=== PATIENT | female | born 2005 ===

== ENCOUNTER 2023-05-27 09:20 | Emergency (ER) | payer MEDICAID, SELFPAY ==
[2023-05-27 09:22] VITALS: BP 117/81; PULSE 78; RESP 16; TEMP 36.3; O2SAT 98; BMI 18.6
[2023-05-27] MEDS: Ondansetron ODT 4 MG TAB.RAPDIS TRANSLINGU (09:31)
--- NOTE | 2023-05-27 09:47 | ED.NAVMDI ---
HPI - Nausea/Vomiting/Diarrhea General Chief complaint: Nausea/Vomiting/Diarrhea Stated complaint: Dehydration, nausea Time Seen by Provider: 05/27/23 09:45 Source: patient Mode of arrival: ambulatory Limitations: no limitations History of Present Illness HPI Narrative: 17 year old female with no significant pmhx presents to the ED today for evaluation of nausea, vomiting, abdominal pain since last night after drinking alcohol. Admits to having 3 cocktails with friends starting around 2000 last night. Around 2300, began vomiting. Reports multiple episodes of vomiting since this time - cannot quantify amount. Friends at bedside decided to bring her to ED for evaluation and are assisting with history. Patient admits to smoking marijuana regularly including last night prior to drinking. Denies other illicit sibstance use. Adds that she began drinking on an empty stomach and has not had much to eat. Denies daily etoh consumption. Denies hx of etoh abuse or withdrawal. No known sick contacts. Denies sore throat, cough, hematemesis, diarrhea, constipation, rashes, flank pain, dysuria, hematuria. Related Data Previous Rx's Medication Instructions Recorded ondansetron 4 mg disintegrating 4 mg PO DAILY PRN nausea and 05/27/23 tablet vomiting 5 days #7 tabs Allergies Allergy/AdvReac Type Severity Reaction Status Date / Time No Known Allergies Allergy Verified 05/27/23 09:28 Review of Systems Review of Systems: Constitutional: No fever, chills, fatigue, night sweats, weight changes ENT/Mouth: No ear pain, hearing loss, nasal congestion, sinus pain, rhinorrhea, sore throat Eyes: No eye pain, swelling, redness, vision changes, discharge Cardio: No chest pain, palpitations, SAMANIEGO, orthopnea, peripheral edema Pulm: No SOB, cough, sputum, wheezing, dyspnea, hemoptysis GI: +nausea, +vomiting, +abdominal pain, no hematemesis, diarrhea, constipation, hematochezia, melena : No irregular bleeding, dysuria, frequency, urgency, hesitancy, hematuria, flank pain, urinary flow changes, urinary incontinence or retention MSK: No back pain, neck pain, joint pain, myalgias Skin: No lesions, rashes Neuro: No weakness, numbness, paresthesias, LOC, dizziness, headache All other systems reviewed and are negative. [facility] Past Medical History Attestation statement: The following information was validated with the patient. Source: old records reviewed and nursing notes reviewed Social History Social History Alcohol intake: current Alcohol intake frequency: a few times a week Smoked in Last 30 Days: No Use of substances other than those prescribed or required for medical reasons: No Advance Directives: No Advance Directives Information Provided: No Patient : No Physical Exam Vital Signs: Vital Signs: Last Vital Signs Temp 97.4 F 05/27/23 09:22 Pulse 78 05/27/23 09:22 Resp 16 05/27/23 09:22 BP 117/81 05/27/23 09:22 Pulse Ox 98 05/27/23 09:22 O2 Del Method Room Air 05/27/23 09:22 BMI result Body Mass Index 18.6 Vital signs stable, afebrile. Const: Other: + vomiting into emesis bag General: cooperative, no acute distress, alert and awake Orientation/consciousness: patient oriented x3 Limitations: no limitations HEENT: Head: Yes normal to inspection Ears: hearing grossly normal bilaterally General nose exam: Normal external nose present Eyes: General: appearance normal, both eyes and all related structures Conjunctivae: conjunctivae normal Sclerae: sclerae normal Pupils: Equal, round and reactive pupils present Neck: Neck: Yes normal visual inspection, Yes full ROM, Yes no lymphadenopathy and Yes no meningeal signs Resp: Effort & Inspection: normal respiratory effort and able to speak in complete sentences Auscultation: clear to auscultation bilaterally Cardio: Rate: regular rate Rhythm: regular rhythm Peripheral pulses: Peripheral pulses 2+ throughout GI: Other: + Abdomen tender to palpation of the epigastric region, no rebound or guarding. Normoactive bowel sounds x4. Negative Gonzales's sign. Negative McBurney point tenderness. Negative Rovsing sign. Inspection: Yes normal to inspection and No visible peristalsis : General: Yes no CVA tenderness Back/Spine/Pelvis: Back: no CVA tenderness Skin: General skin exam: no rashes or lesions noted Neuro: General: patient oriented x3, gait normal and no meningeal signs Cranial nerves: Yes Equal, round and reactive pupils present Extrem: General: Yes normal to inspection and Yes full ROM Course Course Course Narrative: 1242-- CBC without leukocytosis or anemia. H&H stable. Chemistry without acute electrolyte abnormality requiring intervention. Lipase wnl > no concern for acute pancreatitis. Liver function wnl. renal function wnl > low suspicion for acute dehydration. serum bHCG undetectable > unlikely IUP. urine negative for infection and pregnency. serum ethanol level undetectable. negative for covid and flu. symptoms are consistent with acute etoh poisoning vs cyclical vomiting. >> on re-evaluation, patient states she was able to nap and woke up feeling much better. she has not had any episodes of vomiting since receiving zofran & IVF in ED. She is currently tolerating crackers and gingerale, talking to her friends, and seems in good spirits. Has no further concerns at this time. I feel comfortable discharging patient home with strict return precautions. discussed work up results with patient. all questions answered at this time. Patient has remained stable throughout ED visit today. Patient is agreeable with disposition and stable for discharge. Medications Administered Discontinued Medications Generic Name Dose Route Start Last Admin Trade Name Freq PRN Reason Stop Dose Admin Sodium Chloride 1,000 mls @ 999 mls/hr 05/27/23 10:00 05/27/23 11:28 Ns IV 05/27/23 11:00 Infused .Q1H1M SOLITARIO Infusion Ondansetron HCl 4 mg 05/27/23 09:28 05/27/23 09:31 Ondansetron Odt 4 Mg Tab.Rapdis TRANSLINGU 05/27/23 09:29 4 mg ONCE ONE Administration Ondansetron HCl 4 mg 05/27/23 10:05 05/27/23 10:21 Ondansetron Hcl 4 Mg/2 Ml Vial IVPUSH 05/27/23 10:06 4 mg ONCE ONE Administration Medical Decision Making Medical Decision Making [facility] Narrative: 17 year old female with no significant pmhx presents to the ED today for evaluation of nausea, vomiting, abdominal pain since last night after drinking alcohol. Vital signs stable, afebrile. Actively vomiting on exam. No acute distress. Abdomen tender to palpation of the epigastric region, no rebound or guarding. Normoactive bowel sounds x4. Negative Gonzales's sign. Negative McBurney point tenderness. Negative Rovsing sign. No rashes. Clinical concern for acute alcohol intoxication, alcohol poisoning, gastroenteritis, viral syndrome, dehydration, hypoglycemia, cyclical vomiting. Lower suspicion for IUP, UTI. Unlikely acute pancreatitis, cholecystitis, appendicitis, acute abdomen, IBS, ischemic bowel, ovarian torsion or cyst rupture. Plan for labs, UA, urine , IV fluids, re-evaluation. Differential Diagnosis Differential Diagnoses: The differential diagnosis associated with the presentation includes As above. Admission/Observation Consideration of admission/observation: Escalation of care including admission/observation considered In this patient with intractable vomiting s/p etoh intoxication, admission was considered. Lab Data MDM Lab Attestation statement: I reviewed the patient's lab results. As above. 05/27/23 10:03 05/27/23 10:03 Labs: Lab Results 05/27/23 05/27/23 05/27/23 Range/Units 09:52 10:03 10:12 WBC 9.1 (4.8-10.8) X10*3/uL RBC 4.71 (4.20-5.50) X10*6/uL Hgb 13.8 (12.0-16.0) g/dl Hct 39.8 (37.0-47.0) % MCV 84.5 (80.0-98.0) fL MCH 29.3 (27.0-33.0) pg MCHC 34.7 (31.0-35.0) g/dl RDW 12.6 (11.0-16.0) % Plt Count 226 (160-400) X10*3/uL MPV 10.6 (9.4-12.3) fL Immature Gran % (Auto) 0.6 H (0.0-0.4) % Neut % (Auto) 79.0 H (45-73) % Lymph % (Auto) 16.0 L (20-40) % Kem[place] % (Auto) 3.4 (2-11) % Eos % (Auto) 0.7 (0-4) % Baso % (Auto) 0.3 (0-2) % Lymph # (Auto) 1.5 (1.2-4.9) X10*3/uL Kem[place] # (Auto) 0.3 (0.1-1.2) X10*3/uL Eos # (Auto) 0.1 (0.0-0.4) X10*3/uL Baso # (Auto) 0.0 (0.0-0.2) X10*3/uL Abs Immat Gran (auto) 0.05 H (0.00-0.03) X10*3/uL Absolute Neuts (auto) 7.2 (2.0-8.3) x10*3/uL Absolute Nucleated RBC 0.000 (0.0-0.012) X10*3/uL Nucleated RBC % (auto) 0.0 (0.0-0.2) /100WBC Sodium 143 (135-145) mmol/L Potassium 4.0 (3.3-5.1) mmol/L Chloride 109 H (96-108) mmol/L Carbon Dioxide 20 L (22-29) mmol/L Anion Gap 18 (12-20) BUN 13 (9-16) mg/dL Creatinine 0.85 (0.5-1.4) mg/dL Estim Creat Clear Calc 87.6 Estimated GFR > 60 POC Glucose 71 (60-115) mg/dL Random Glucose 76 (60-115) mg/dL Calcium 9.3 (8.4-10.2) mg/dL Magnesium 1.9 (1.6-2.6) mg/dL Total Bilirubin 0.5 (0.0-1.0) mg/dL AST 23 (5-31) U/L ALT 17 (0-31) U/L Alkaline Phosphatase 54 (39-117) U/L Total Protein 7.8 (6.5-8.0) g/dL Albumin 4.4 (3.5-5.0) g/dL Lipase 16 (8-78) U/L Beta HCG, Quant < 2 mIU/mL Urine Color Urine Appearance Urine pH (5.0-9.0) Ur Specific [place] (1.005-1.025) Urine Protein (Neg-Trace) mg/dL Urine Glucose (UA) (Negative) mg/dL Urine Ketones (Negative) mg/dL Urine Blood (Negative) Urine Nitrite (Negative) Ur Leukocyte Esterase (Negative) Urine Test (NEGATIVE) Ethyl Alcohol < 10 mg/dL COVID-19 (STEPHANIE) Negative (Negative) COVID-19 Clin Com See Note Influenza Type A (MADALYN) Negative (Negative) Influenza Type B (MADALYN) Negative (Negative) Influenza A & B Note See Note 05/27/23 Range/Units 12:18 WBC (4.8-10.8) X10*3/uL RBC (4.20-5.50) X10*6/uL Hgb (12.0-16.0) g/dl Hct (37.0-47.0) % MCV (80.0-98.0) fL MCH (27.0-33.0) pg MCHC (31.0-35.0) g/dl RDW (11.0-16.0) % Plt Count (160-400) X10*3/uL MPV (9.4-12.3) fL Immature Gran % (Auto) (0.0-0.4) % Neut % (Auto) (45-73) % Lymph % (Auto) (20-40) % Kemper % (Auto) (2-11) % Eos % (Auto) (0-4) % Baso % (Auto) (0-2) % Lymph # (Auto) (1.2-4.9) X10*3/uL Kemper # (Auto) (0.1-1.2) X10*3/uL Eos # (Auto) (0.0-0.4) X10*3/uL Baso # (Auto) (0.0-0.2) X10*3/uL Abs Immat Gran (auto) (0.00-0.03) X10*3/uL Absolute Neuts (auto) (2.0-8.3) x10*3/uL Absolute Nucleated RBC (0.0-0.012) X10*3/uL Nucleated RBC % (auto) (0.0-0.2) /100WBC Sodium (135-145) mmol/L Potassium (3.3-5.1) mmol/L Chloride (96-108) mmol/L Carbon Dioxide (22-29) mmol/L Anion Gap (12-20) BUN (9-16) mg/dL Creatinine (0.5-1.4) mg/dL Estim Creat Clear Calc Estimated GFR POC Glucose (60-115) mg/dL Random Glucose (60-115) mg/dL Calcium (8.4-10.2) mg/dL Magnesium (1.6-2.6) mg/dL Total Bilirubin (0.0-1.0) mg/dL AST (5-31) U/L ALT (0-31) U/L Alkaline Phosphatase (39-117) U/L Total Protein (6.5-8.0) g/dL Albumin (3.5-5.0) g/dL Lipase (8-78) U/L Beta HCG, Quant mIU/mL Urine Color Yellow Urine Appearance Clear Urine pH 7.0 (5.0-9.0) Ur Specific [place] 1.025 (1.005-1.025) Urine Protein Trace (Neg-Trace) mg/dL Urine Glucose (UA) Negative (Negative) mg/dL Urine Ketones 80 (Negative) mg/dL Urine Blood Negative (Negative) Urine Nitrite Negative (Negative) Ur Leukocyte Esterase Negative (Negative) Urine Test NEGATIVE (NEGATIVE) Ethyl Alcohol mg/dL COVID-19 (STEPHANIE) (Negative) COVID-19 Clin Com Influenza Type A (MADALYN) (Negative) Influenza Type B (MADALYN) (Negative) Influenza A & B Note Independent Historian Clinical information obtained from an independent historian. History obtained from or confirmed by: Friend External Record Review External record reviewed: Inpatient record Tests considered The following testing was considered but not selected: I consdidered obtaining CT abd/pelvis however labs unremarkable and physical exam benign, unlikely acute abdomen. Prescription Management I considered prescription management with: Pain Medication and Other (Antiemetic) Social Determinants Patient?s care significantly limited by Social Determinants of Health including: Other Social Determinant of Health Critical Care Time Critical Care Time Critical Care Time: No Discharge Plan Discharge Clinical Impression: Alcohol poisoning, Dehydration, Vomiting Patient Disposition: Home, Self-Care Instructions: Abuse of Alcohol (ED) Additional Instructions: You were evaluated in the ED today for nausea, vomiting, and abdominal pain. Your labs are normal. Your urine is negative for infection and . You received IV fluids and zofran in ED with improvement in symptoms. You are able to tolerate both solid foods and drinks. Zofran as an antiemetic that has been sent to your pharmacy. Take this as needed for nausea. Do not drink alcohol or smoke marijuana as this can worsen your symptoms. If symptoms persist or worsen please return to the ED. In the case of an emergency call 911. Prescriptions: New ondansetron 4 mg tablet,disintegrating 4 mg PO DAILY PRN (Reason: nausea and vomiting) 5 Days Qty: 7 0RF Interventions: ED Discharge Assessment Last Done: 05/27/23 13:11 Discharge Date/Time: 05/27/23 13:11
[2023-05-27 10:09] LABS: COVID-19 Test Negative (Negative); IDNOW Serial# 08D9AD1C
[2023-05-27 10:09] LABS: Basophils Percent Auto 0.3 % (0-2); Eosinophils Absolute Auto 0.1 X10*3/uL (0.0-0.4); Eosinophils Percent Auto 0.7 % (0-4); Hematocrit 39.8 % (37.0-47.0); Hemoglobin 13.8 g/dl (12.0-16.0); Imm Gran Abs Auto 0.05 X10*3/uL (0.00-0.03); Imm Gran Pct Auto 0.6 % (0.0-0.4); Lymphocytes Absolute Auto 1.5 X10*3/uL (1.2-4.9); MANUAL DIFF FLAG NO; Mean Corpuscular HGB Conc 34.7 g/dl (31.0-35.0); Mean Corpuscular Hemoglobin 29.3 pg (27.0-33.0); Mean Corpuscular Volume 84.5 fL (80.0-98.0); Mean Platelet Volume 10.6 fL (9.4-12.3); Monocytes Absolute Auto 0.3 X10*3/uL (0.1-1.2); Monocytes Percent Auto 3.4 % (2-11); Neutrophils Absolute Auto 7.2 x10*3/uL (2.0-8.3); Platelet Count 226 X10*3/uL (160-400); Red Blood Count 4.71 X10*6/uL (4.20-5.50); Red Cell Distribution Width 12.6 % (11.0-16.0); White Blood Count 9.1 X10*3/uL (4.8-10.8)
[2023-05-27] MEDS: 0.9 % Sodium Chloride 1,000 ML 999 ML IV (10:10)
[2023-05-27 10:13] LABS: IDNOW Serial# 152EDE1D; Influenza A Negative (Negative); Influenza B2 Negative (Negative)
[2023-05-27 10:16] LABS: Glucose, Whole Blood 71 mg/dL (60-115)
[2023-05-27] MEDS: ondansetron HCL 4 MG/2 ML VIAL IVPUSH (10:21)
[2023-05-27 10:45] LABS: Alanine Aminotransferase 17 U/L (0-31); Albumin Level 4.4 g/dL (3.5-5.0); Alkaline Phosphatase 54 U/L (39-117); Anion Gap 18 (12-20); Aspartate Amino Transferase 23 U/L (5-31); Bilirubin Total 0.5 mg/dL (0.0-1.0); Blood Urea Nitrogen 13 mg/dL (9-16); Calcium 9.3 mg/dL (8.4-10.2); Carbon Dioxide 20 mmol/L (22-29); Chloride 109 mmol/L (96-108); Creatinine Clr Calc Pharmacy 87.6; Estimated Glomerular Filt Rate > 60; Ethanol < 10 mg/dL; Glucose Random 76 mg/dL (60-115); HCG Quantitative < 2 mIU/mL; Lipase 16 U/L (8-78); Magnesium 1.9 mg/dL (1.6-2.6); Sodium 143 mmol/L (135-145); Total Protein 7.8 g/dL (6.5-8.0)
[2023-05-27 12:25] LABS: Appearance Urine Clear; Color Urine Yellow; Glucose Urine UA Negative (Negative); Leukocyte Esterase Urine Negative (Negative); Nitrite Urine Negative (Negative); Specific Gravity - Urine 1.025 (1.005-1.025); Urine Blood Negative (Negative); Urine Ketones 80 mg/dL (Negative); Urine Protein Trace mg/dL (Neg-Trace)
[2023-05-27 12:26] LABS: UPreg QC Valid YES; Urine Pregnancy NEGATIVE (NEGATIVE)
== END 2023-05-27 13:11 | disposition home or self-care (01) ==
PROVIDERS: Physician Assistant Medical; Emergency Provider Student in an Organized Health Care Education/Training Program
DX: E86.0 Dehydration (principal); R11.2 Nausea with vomiting, unspecified; T51.0X1A Toxic effect of ethanol, accidental (unintentional), initial encounter; Y92.9 Unspecified place or not applicable; R10.9 Unspecified abdominal pain; F12.10 Cannabis abuse, uncomplicated; Z11.52 Encounter for screening for COVID-19; Z79.899 Other long term (current) drug therapy
CPT/HCPCS: 36415; 80053; 80307; 81003; 81025; 82947; 83690; 83735; 84702; 85025; 87502; 87635; 96361; 96374; 99284; J2405